=== PATIENT | female | born 1975 | race Caucasian/White ===

== ENCOUNTER 2023-11-25 20:50 | Emergency (ER) | payer BC ==
[2023-11-25 22:40] LABS: Influenza A by NAA Not Detected (NotDetected); Influenza B by NAA Not Detected (NotDetected); SARS-CoV-2 NAA Rapid Test Not Detected (NotDetected)
== END 2023-11-25 23:45 | disposition home or self-care (01) ==
LOC: ERS 20:50
DX: J45.901 Unspecified asthma with (acute) exacerbation (principal); R06.00 Dyspnea, unspecified; I10 Essential (primary) hypertension; F17.210 Nicotine dependence, cigarettes, uncomplicated; Z79.899 Other long term (current) drug therapy
CPT/HCPCS: 71045